=== PATIENT | male | born 1950 | race Caucasian/White ===

== ENCOUNTER 2016-08-20 06:04 | Day surgery (SDC) | payer MEDICARE, OTHER ==
[2016-08-20] MEDS ORDERED: Lactated Ringers 1,000 ML IV SCH (06:30)
[2016-08-20] MEDS ORDERED: Ketamine HCl 50 MG/ML IV ONE (08:00)
[2016-08-20] MEDS ORDERED: DIPRIVAN 200 MG/20 ML IV ONE (08:00)
[2016-08-20 08:19] VITALS: O2SAT 96
[2016-08-20 08:25] VITALS: BP 138/84; PULSE 65
--- NOTE | 2016-08-20 08:30 | OP ---
SURGERY DATE: 08/20/16 SURGERY TIME: 655 PREOPERATIVE DIAGNOSIS: 1. SCREENING EXAM. 2. HISTORY OF COLON POLYPS. POSTOPERATIVE DIAGNOSIS: 1. NORMAL COLON. PROCEDURE: 1. Colonoscopy. SURGEON: Dr. Ingram. ANESTHESIA: MAC, medications given by the Anesthesia Department. BRIEF HISTORY: The patient is a 66 y/o WM patient presenting now for repeat colonoscopy. He reports he has had colon polyps removed previously and was felt to need to have endoscopic evaluation. He was appraised of the risks of the procedure including the risk of perforation, phlebitis, untoward reaction to medication, bleeding, and missed lesions. The patient verbalized his understanding and desired to have the procedure performed. DESCRIPTION OF PROCEDURE: The patient was given the medications by the Anesthesia Department. He had continuous pulse oximetry, ECG monitoring, intermittent BP monitoring, and end tidal CO2 monitoring during the examination. He was placed in the left lateral decubitus position. A digital rectal examination was performed and revealed normal anal sphincter tone, no masses, and a normal prostate. The flexible Olympus pediatric colonoscope was used to intubate the rectum. A view of the colon was developed sequentially to the cecum. Upon insertion and withdrawal, including a retroflex view in the rectum, no mucosal lesions were encountered. The scope was removed from the patient who tolerated the procedure well and was sent back to OP recovery in good condition. The prep was noted to be fair to good.
== END 2016-08-20 08:20 | disposition home or self-care (01) ==
LOC: SDC 06:04
PROVIDERS: ATTEND Family Medicine
PROC: 0DJD8ZZ Inspection of Lower Intestinal Tract, Via Natural or Artificial Opening Endoscopic (ICD-10-PCS; principal; 2016-08-20)
DX: Z12.11 Encounter for screening for malignant neoplasm of colon (principal); Z86.010 Personal history of colon polyps; E11.9 Type 2 diabetes mellitus without complications; I10 Essential (primary) hypertension
CPT/HCPCS: G0121 ×2; 00810; 82962; J2704

== ENCOUNTER 2018-05-03 07:52 | Emergency (ER) | payer MEDICARE, OTHER ==
[2018-05-03 08:19] VITALS: O2SAT 98
--- NOTE | 2018-05-03 08:49 | ERPHSYRPT ---
- History of Present Illness Time Seen by Provider: 05/03/18 08:36 Source: patient Exam Limitations: no limitations Patient Subjective Stated Complaint: pain in left buttocks and left hip radiating down left leg since saturday. Triage Nursing Assessment: alert and oriented with c/o pain in left hip and radiating to left leg. denies injury Physician History: The patient is a 67-year-old male with his complaining of a sudden onset of left low back pain radiating through his left buttock down his left leg that began on Saturday when he stood up. He has severe pain when he lies flat on his back. He's had difficulty sleeping at night because he is unable to lie flat in bed. He denies any weakness of his leg or numbness in his left leg. He denies any problems with urination or defecation. He had a similar episode 15 years ago. He has taken Tylenol and ibuprofen without relief. His past medical history is significant for hypertension and diabetes. Timing/Duration: day(s) (3), constant, sudden Method of Injury: unknown Quality: sharp, stabbing Back Pain Location: lumbar spine Back Pain Radiation: lower legs (left) Severity of Pain-Max: moderate Severity of Pain-Current: moderate Modifying Factors: Improves With: movement Associated Symptoms: lower back pain, No numbness in legs/feet, No sensory/ motor loss, No tingling in legs/feet, No muscle spasms Allergies/Adverse Reactions: No Known Drug Allergies Allergy (Verified 05/03/18 08:22) Home Medications: Aspirin [Aspir-Low] 81 mg PO DAILY 08/17/16 [History] Ergocalciferol (Vitamin D2) [Vitamin D2] 1.25 mg PO WEEKLY 08/17/16 [History] Glipizide 10 mg [Glucotrol 10 MG] 10 mg PO BID 08/17/16 [History] Lisinopril 20 mg [Zestril 20 MG] 20 mg PO DAILY 08/17/16 [History] Metformin HCl 1000 mg [Glucophage 1000 MG] 1,000 mg PO BID 08/17/16 [History] Sitagliptin Phosphate [Januvia] 100 mg PO DAILY 08/17/16 [History] - Review of Systems Constitutional: No Fever, No Chills Eyes: No Symptoms Ears, Nose, & Throat: No Symptoms Respiratory: No Cough, No Dyspnea Cardiac: No Chest Pain, No Edema, No Syncope Abdominal/Gastrointestinal: No Abdominal Pain, No Nausea, No Vomiting, No Diarrhea Genitourinary Symptoms: No Dysuria Musculoskeletal: Back Pain Skin: No Rash Neurological: No Dizziness, No Focal Weakness, No Sensory Changes Psychological: No Symptoms Endocrine: No Symptoms Hematologic/Lymphatic: No Symptoms Immunological/Allergic: No Symptoms All Other Systems: Reviewed and Negative - Past Medical History Pertinent Past Medical History: Yes Neurological History: No Pertinent History ENT History: No Pertinent History Cardiac History: Hypertension Respiratory History: No Pertinent History Endocrine Medical History: Diabetes Type II Musculoskeletal History: No Pertinent History GI Medical History: No Pertinent History History: No Pertinent History Psycho-Social History: No Pertinent History Male Reproductive Disorders: No Pertinent History - Past Surgical History Past Surgical History: Yes Neuro Surgical History: No Pertinent History Cardiac: No Pertinent History Respiratory: No Pertinent History Gastrointestinal: Appendectomy Genitourinary: No Pertinent History Musculoskeletal: Other Male Surgical History: No Pertinent History Other Surgical History: bursa sack removed from knee. - Social History Smoking Status: Never smoker Exposure to second hand smoke: No Drug Use: none Patient Lives Alone: No - Nursing Vital Signs Nursing Vital Signs: Initial Vital Signs Temperature 97.7 F 05/03/18 08:12 Pulse Rate 68 05/03/18 08:12 Respiratory Rate 16 05/03/18 08:12 Blood Pressure 146/86 05/03/18 08:12 O2 Sat by Pulse Oximetry 98 05/03/18 08:12 Pain Scale Pain Intensity 9 - Physical Exam General Appearance: moderate distress, alert Eye Exam: PERRL/EOMI, eyes nml inspection Ears, Nose, Throat Exam: normal ENT inspection Neck Exam: normal inspection, non-tender, supple, full range of motion, No meningismus, No midline tenderness Respiratory Exam: normal breath sounds, lungs clear, No respiratory distress Cardiovascular Exam: regular rate/rhythm, normal heart sounds Gastrointestinal Exam: soft, No tenderness, No mass Rectal Exam: not done Back Exam: decreased range of motion, No vertebral tenderness Extremity Exam: limited range of motion (Straight leg raise of the left leg is positive at 45. Exacerbation of the pain down the back of the leg is significant with flexion of the foot.) Neurologic Exam: alert Skin Exam: normal color, warm, dry, No rash SpO2 Interpretation: normal SpO2: 98 Oxygen Delivery: Room Air - Radiology Exams L-Spine X-ray Interpretation: Interpreted by me, Other (mild anteriolisthesis of L3 over L4; mild arthritis of L2, L3, L4.) Ordered Tests: Active Orders 24 hr Category Date Time Status LUMBAR LIMITED (2 OR 3 VIEWS) Stat Exams 05/03/18 08:51 Taken Medication Summary Discontinued Medications Generic Name Dose Route Start Last Admin Trade Name Freq PRN Reason Stop Dose Admin Dexamethasone Sodium Phosphate 10 mg 05/03/18 08:50 05/03/18 09:01 Decadron 10mg Inj. IM 05/03/18 08:51 10 mg STAT ONE Administration Dexamethasone Sodium Phosphate Confirm 05/03/18 08:55 Decadron 10mg Inj. Administered 05/03/18 08:56 Dose 10 mg .ROUTE .STK-MED ONE Ketorolac Tromethamine 60 mg 05/03/18 08:50 05/03/18 09:00 Toradol 30 Mg Injection IM 05/03/18 08:51 60 mg STAT ONE Administration Ketorolac Tromethamine Confirm 05/03/18 08:55 Toradol 30 Mg Injection Administered 05/03/18 08:56 Dose 60 mg .ROUTE .STK-MED ONE - Progress Progress: improved Counseled pt/family regarding: diagnosis, rad results - Departure Time of Disposition: 09:45 Departure Disposition: Home Clinical Impression: Sciatica of left side Condition: Stable Critical Care Time: No Referrals: NONI NELSON [Primary Care Provider] - Additional Instructions: You have left-sided sciatica. You were given Toradol 60 mg and Decadron 10 mg by IM in the ER. Take Flexeril 5 mg every 8 hours as needed. Take naproxen 500 mg 2 times a day as needed. Apply ice to the low back for 15 minutes at a time, 3 times a day, as needed. Follow-up with your primary medical doctor next week if the condition persists. Prescriptions: Cyclobenzaprine HCl [Flexeril] 5 mg PO Q8H PRN PRN #10 tablet PRN Reason: Pain Naproxen 500 mg PO BID PRN #30 tablet
[2018-05-03] MEDS ORDERED: DECADRON 10MG INJ. IM ONE (08:50)
[2018-05-03] MEDS ORDERED: TORAdol 30 mg Injection IM ONE (08:50)
[2018-05-03] MEDS ORDERED: TORAdol 30 mg Injection ONE (08:55)
[2018-05-03] MEDS ORDERED: DECADRON 10MG INJ. ONE (08:55)
[2018-05-03 10:00] VITALS: BP 142/84; PULSE 70
--- NOTE | 2018-05-03 19:03 | XRAY ---
Indication: Pain. Comparison: None 3 views of the lumbar spine demonstrates 5 lumbar vertebral segments with mild multilevel degenerative spondylosis including minimal 2 mm L3 anterolisthesis and mild aortic calcifications. No other bony, articular, or soft tissue abnormalities.
== END 2018-05-03 09:58 | disposition home or self-care (01) ==
LOC: ED 07:52
DX: M54.42 Lumbago with sciatica, left side (principal); Z79.899 Other long term (current) drug therapy
CPT/HCPCS: 72100; 96372; 99284; J1100; J1885